=== PATIENT | female | born 1970 | race Caucasian/White ===

== ENCOUNTER 2016-08-13 10:58 | Emergency (ER) | payer BC, SELFPAY | END 2016-08-13 12:10 | disposition home or self-care (01) | LOC: MADERS 10:58 | DX: J30.9 Allergic rhinitis, unspecified (principal); I10 Essential (primary) hypertension; Z79.84 Long term (current) use of oral hypoglycemic drugs; Z79.899 Other long term (current) drug therapy | CPT/HCPCS: 99282 ==

== ENCOUNTER 2016-11-13 20:57 | Emergency (ER) | payer BC, SELFPAY ==
[2016-11-13] MEDS ORDERED: diphenhydrAMINE HCl 25 MG CAP ONE (21:49)
== END 2016-11-13 22:00 | disposition home or self-care (01) ==
LOC: MADERS 20:57
DX: S80.862A Insect bite (nonvenomous), left lower leg, initial encounter (principal); I10 Essential (primary) hypertension; Z79.84 Long term (current) use of oral hypoglycemic drugs; Z79.899 Other long term (current) drug therapy; W57.XXXA Bitten or stung by nonvenomous insect and other nonvenomous arthropods, initial encounter
CPT/HCPCS: 99282

== ENCOUNTER 2017-02-24 21:08 | Emergency (ER) | payer BC ==
[2017-02-24] MEDS ORDERED: traMADol HCl 50 MG TAB ONE (21:48)
[2017-02-24] MEDS ORDERED: Sulfameth/Trimethoprim DS 800-160mg TAB ONE (21:49)
== END 2017-02-24 21:55 | disposition home or self-care (01) ==
LOC: MADERS 21:08
DX: L02.411 Cutaneous abscess of right axilla (principal); L03.113 Cellulitis of right upper limb; I10 Essential (primary) hypertension; F17.210 Nicotine dependence, cigarettes, uncomplicated
CPT/HCPCS: 87070; 87205; 99283

== ENCOUNTER 2017-08-24 16:51 | Emergency (ER) | payer BC | END 2017-08-24 17:09 | disposition home or self-care (01) | LOC: MADERS 16:51 | DX: L08.9 Local infection of the skin and subcutaneous tissue, unspecified (principal); I10 Essential (primary) hypertension; E11.9 Type 2 diabetes mellitus without complications; F17.210 Nicotine dependence, cigarettes, uncomplicated; Z79.84 Long term (current) use of oral hypoglycemic drugs; Z79.899 Other long term (current) drug therapy | CPT/HCPCS: 10060 ==

== ENCOUNTER 2019-06-18 14:31 | Emergency (ER) | payer BC | END 2019-06-18 15:10 | disposition home or self-care (01) | LOC: MADERS 14:31 | DX: L30.8 Other specified dermatitis (principal); F17.210 Nicotine dependence, cigarettes, uncomplicated | CPT/HCPCS: 99282 ==

== ENCOUNTER 2022-06-20 18:10 | Emergency (ER) | payer BC, OTHER | END 2022-06-20 19:10 | disposition home or self-care (01) | LOC: MADERS 18:10 | DX: B02.9 Zoster without complications (principal); F17.210 Nicotine dependence, cigarettes, uncomplicated | CPT/HCPCS: 99282 ==

== ENCOUNTER 2022-08-15 17:10 | Emergency (ER) | payer OTHER, SELFPAY | END 2022-08-15 17:54 | disposition home or self-care (01) | LOC: MADERS 17:10 | DX: J20.9 Acute bronchitis, unspecified (principal); F17.210 Nicotine dependence, cigarettes, uncomplicated | CPT/HCPCS: 99283 ==

== ENCOUNTER 2022-09-12 14:02 | Emergency (ER) | payer BC, OTHER | END 2022-09-12 14:48 | disposition home or self-care (01) | LOC: MADERS 14:02 | DX: L03.115 Cellulitis of right lower limb (principal); F17.210 Nicotine dependence, cigarettes, uncomplicated | CPT/HCPCS: 99283 ==

== ENCOUNTER 2022-10-04 20:57 | Emergency (ER) | payer BC ==
[2022-10-04 21:44] LABS: #Eosinphils 0.1 thou/uL (0.0-0.7); #Lymphocytes 3.6 thou/uL (1.20-3.40); #Monocytes 0.7 thou/uL (0.11-0.59); #Neutrophils 6.8 thou/uL (1.40-6.50); %Basophils 0.4 % (0.0-1.0); %Eosinophils 1.1 % (0.0-10.0); %Lymphocytes 31.9 % (21.0-51.0); %Monocytes 6.1 % (0.0-10.0); %Neutrophils 60.5 % (42.0-75.0); Hemoglobin 12.7 g/dL (12.0-16.0); Mean Corpuscular HGB CONC 33.4 g/dL (32.0-36.0); Mean Corpuscular Hemoglobin 25.1 pg (27.0-31.0); Mean Corpuscular Volume 75.1 fl (78.0-98.0); Mean Platelet Volume 7.2 fL (7.4-10.4); Platelet Count 263 10x3/uL (130-400); RBC Distribution Width 13.1 % (11.5-14.5); Red Blood Cell (RBC) Count 5.07 mill/uL (4.20-5.40); White Blood Cell (WBC) Count 11.3 10x3/uL (4.8-10.8)
[2022-10-04] MEDS ORDERED: Sodium Chloride 0.9% 100 ML ONE (21:49)
[2022-10-04] MEDS ORDERED: cefTRIAXone (ROCEPHIN) 1 GM VIAL ONE (21:49)
[2022-10-04 22:02] LABS: Anion Gap 14 mmol/L (10-20); BUN (Urea Nitrogen) 8 mg/dL (9.8-20.1); Calc. Creatinine Clearance 0 mL/min (70-130); Calcium 9.7 mg/dL (7.8-10.44); Carbon Dioxide 25 mmol/L (22-29); Chloride 99 mmol/L (98-107); Estimated GFR 93; Glucose 363 mg/dL (70-105); Potassium 3.5 mmol/L (3.5-5.1); Sodium 134 mmol/L (136-145)
== END 2022-10-04 22:13 | disposition home or self-care (01) ==
LOC: MADERS 20:57
DX: L03.032 Cellulitis of left toe (principal); F17.210 Nicotine dependence, cigarettes, uncomplicated
CPT/HCPCS: 80048; 85025; 87040; 96374; J0696; J3490